=== PATIENT | male | born 1990 | race African-American/Black ===

== ENCOUNTER 2016-11-02 19:33 | Emergency (ER) | payer SELFPAY ==
--- NOTE | 2016-11-14 16:41 | ER ---
ADMIT: 11/02/2016 RM/LOC: ER [facility] MR#: [id number] [address] [facility] [address] [place] [id number] LATRICE BURTON [address] [place] [id number] Emergency Room Report SEX: M AGE: 26 : 1990 DATE: 11/02/2016 This 26-year-old gentleman, comes to the Emergency Department with complaints of headache and tooth pain. Was concerned that he was not feeling well, he took Xanax yesterday. However, he had an acetone odor. When asked if he is diabetic, he said he was. He has been subsequently worked up for possible DKA. Given IV fluids. CBC was significant for platelets of 303. Sodium was 132, bicarb 23, glucose 492, and anion gap was 22. Had small amount of serum ketones. Given 2 L of fluid and 6 units of Humalog insulin. He was instructed to follow up with his primary MD on Friday and get set up with diabetic education. DIAGNOSIS: Being poorly controlled diabetes. Giuseppe Manzanares MD/ herbl JOB #: [id number] CC: Mookie Esparza MD, Attending Physician
== END 2016-11-02 23:46 | disposition home or self-care (01) ==
LOC: ER 19:33
DX: E13.10 Other specified diabetes mellitus with ketoacidosis without coma (principal); Z79.4 Long term (current) use of insulin